=== PATIENT | female | born 1965 | race Two or more races ===

== ENCOUNTER 2025-10-09 06:01 | Emergency (ER) | payer OTHER ==
[~2025-10-09] VITALS: Ht 165.1 cm; Wt 95.7 kg
[2025-10-09 06:30] VITALS: O2SAT 96
[2025-10-09] MEDS ORDERED: 0.9 % SODIUM CHLORIDE 1,000 ML IV ONE (07:45)
[2025-10-09] MEDS ORDERED: ACETAMINOPHEN 500 MG GEL..CAP PO ONE ×2 (07:45→08:00)
[2025-10-09] MEDS ORDERED: METHYLPREDNISOLONE SOD SUCC 125 MG VIAL IV ONE (07:45)
[2025-10-09] MEDS ORDERED: LEVALBUTEROL HCL 1.25 MG/3 ML SOLUTION IH ONE ×2 (07:45→09:38)
[2025-10-09] MEDS ORDERED: NIFEDIPINE 10 MG CAPSULE PO ONE ×2 (07:45→08:00)
[2025-10-09] MEDS ORDERED: BENZONATATE 200 MG CAPSULE PO ONE (07:45)
[2025-10-09] MEDS ORDERED: METHYLPREDNISOLONE SOD SUCC 125 MG VIAL ONE (08:01)
[2025-10-09 08:28] LABS: BASO % 1.4 % (0.1-1.2); EOS # 0.07 (0.04-0.54); EOS % 1.1 % (0.7-7.0); LYMPH # 1.14 (1.18-3.74); LYMPH % 17.1 % (19.3-53.1); MEAN PLATELET VOLUME 11.30 fl (9.4-12.4); MONO # 1.02 (0.24-0.82); NEUT # 4.31 (1.56-6.13); NEUT % 64.8 % (34.0-71.1); RED CELL DISTRIBUTION WIDTH 16.1 % (11.6-14.4)
[2025-10-09 08:42] LABS: MONO % 15.3 % (4.7-12.5)
[2025-10-09 09:07] LABS: INR 0.99
[2025-10-09 09:13] LABS: ALT/SGPT 21.0 U/L (12-78); AST/SGOT 32.0 U/L (15-37); BILIRUBIN TOTAL 0.12 mg/dL (0.3-1.2); BUN CREA RATIO 6.0 (7.0-25.0); CREATININE SERUM 0.65 mg/dL (0.55-1.02); GFR 93.29; GLOBULINA 4.1 G/DL (2.4-3.5); OSMOLALITY SERUM 279.0 MOSM/KG (275-295)
[2025-10-09 09:15] LABS: COVID-19 AG NEGATIVE (NEGATIVE)
[2025-10-09 09:16] LABS: GLUCOSE FASTING 50.0 mg/dL (65-100)
[2025-10-09] MEDS ORDERED: OSELTAMIVIR PHOSPHATE 75 MG CAPSULE PO ONE ×2 (09:45→10:00)
[2025-10-09] MEDS ORDERED: DEXTROSE 50 % IN WATER 0.5 G/ML VIAL IV ONE (10:00)
[2025-10-09] MEDS ORDERED: PEPCID AC20 MG PO (10:47)
[2025-10-09] MEDS ORDERED: OSEL75CA PO (10:47)
[2025-10-09] MEDS ORDERED: LEVALBUTER0.63 MG/3 IH (10:47)
[2025-10-09] MEDS ORDERED: BENZONATATE200 M1 PO (10:47)
[2025-10-09 11:39] VITALS: BP 160/90
== END 2025-10-09 11:41 | disposition home or self-care (01) ==
LOC: ER 06:02
PROVIDERS: General Practice
DX: J10.1 Influenza due to other identified influenza virus with other respiratory manifestations (principal); I10 Essential (primary) hypertension; R53.81 Other malaise; Z88.8 Allergy status to other drugs, medicaments and biological substances